=== PATIENT | male | born 1995 | race Caucasian/White ===

== ENCOUNTER 2017-01-31 22:48 | Emergency (ER) | payer MEDICAID ==
[~2017-01-31] VITALS: Ht 175.3 cm; Wt 136.1 kg
[~2017-01-31 22:48] MED LIST: ALBUTEROL; PROINH INH
[2017-01-31 23:24] LABS: BASOPHIL % 0.5 % (0-2); PLATELET COUNT 339 x10^3mcL (130-400); RED CELL DISTRIBUTION WIDTH 13.4 % (11.5-14.5)
[2017-01-31 23:37] LABS: CALCIUM 9.4 mg/dL (8.5-10.1); CARBON DIOXIDE 21.3 mmol/L (21-32); CHLORIDE SERUM 105 mmol/L (98-107); GFR1 > 60 mL/min; GLUCOSE SERUM 110 mg/dL (74-106); POTASSIUM SERUM 3.4 mmol/L (3.5-5.1); SODIUM SERUM 141 mmol/L (136-145)
[2017-01-31 23:41] LABS: ALBUMIN 4.2 g/dL (3.4-5.0); ALKALINE PHOSPHATASE 57 U/L (46-116); ALT/SGPT 29 U/L (16-63); AMYLASE 77 U/L (25-115); AST/SGOT 17 U/L (15-37); BILIRUBIN TOTAL 0.36 mg/dL (0.20-1.00); LIPASE 126 IU/L (73-393)
[2017-01-31 23:44] LABS: TOTAL PROTEIN, SERUM 3.7 g/dL (6.4-8.2)
[2017-01-31 23:53] LABS: CK-MB 0.5 ng/mL (0-3.6)
[2017-02-01 10:02] LABS: microscopic required? NO
[2017-02-01 10:19] LABS: urine erythrocyte NEGATIVE (NEGATIVE)
[2017-02-01 10:31] LABS: AMPHETAMINE QUAL UR NONE DETECTED (NEG <=1000)
[2017-02-01 11:15] VITALS: BP 110/63
== END 2017-02-01 14:08 | disposition home or self-care (01) ==
LOC: ED 22:48
PROVIDERS: Emergency Medicine
DX: F41.0 Panic disorder [episodic paroxysmal anxiety] (principal); R45.851 Suicidal ideations; J45.909 Unspecified asthma, uncomplicated; Z91.040 Latex allergy status
CPT/HCPCS: 80307; 83880; 85378; G0480; J2060; J7030; Q0092; Q9967

== ENCOUNTER 2018-01-07 04:42 | Emergency (ER) | payer MEDICAID ==
[~2018-01-07] VITALS: Ht 170.2 cm; Wt 112.5 kg
[2018-01-07 04:47] VITALS: Ht 170.2 cm; Wt 112.5 kg
[2018-01-07 06:45] VITALS: BP 138/89
== END 2018-01-07 06:45 | disposition home or self-care (01) ==
LOC: ED 04:42
DX: L50.9 Urticaria, unspecified (principal); J45.909 Unspecified asthma, uncomplicated; Z86.79 Personal history of other diseases of the circulatory system; Z91.040 Latex allergy status
CPT/HCPCS: J0171; J1200; J7512

== ENCOUNTER 2018-01-08 22:18 | Emergency (ER) | payer MEDICAID ==
[2018-01-08 22:50] VITALS: BP 144/75
== END 2018-01-09 00:13 | disposition home or self-care (01) ==
LOC: ED 22:18
DX: L50.9 Urticaria, unspecified (principal); R03.0 Elevated blood-pressure reading, without diagnosis of hypertension; J45.909 Unspecified asthma, uncomplicated; Z91.040 Latex allergy status
CPT/HCPCS: J1200; J2920

== ENCOUNTER 2019-12-21 00:39 | Emergency (ER) | payer SELFPAY ==
[~2019-12-21] VITALS: Ht 172.7 cm; Wt 119.5 kg
[2019-12-21 01:37] VITALS: BP 125/77
== END 2019-12-21 01:37 | disposition home or self-care (01) ==
LOC: ED 00:39
DX: H15.89 Other disorders of sclera (principal); J45.909 Unspecified asthma, uncomplicated; Z90.49 Acquired absence of other specified parts of digestive tract; Z91.040 Latex allergy status